=== PATIENT | female | born 1980 | race Caucasian/White ===

== ENCOUNTER 2017-03-11 09:40 | Emergency (ER) | payer MEDICARE, OTHER | END 2017-03-11 11:40 | disposition home or self-care (01) | LOC: ER1 09:40 | DX: L02.211 Cutaneous abscess of abdominal wall (principal); E66.9 Obesity, unspecified; G62.9 Polyneuropathy, unspecified; F17.210 Nicotine dependence, cigarettes, uncomplicated; Z88.2 Allergy status to sulfonamides; Z79.891 Long term (current) use of opiate analgesic | CPT/HCPCS: 10061; 87070; 87205; 99283 ==